=== PATIENT | female | born 1975 | race Caucasian/White ===

== ENCOUNTER 2018-01-01 08:05 | Emergency (ER) | payer BC, OTHER ==
[2018-01-01] MEDS: IPRATROPIUM (NEB) 0.5 MG/2.5 ML AMP HHN (08:29)
[2018-01-01] MEDS: ALBUTEROL 0.083% (NEB) 2.5 MG/3 ML AMP HHN (08:30)
[2018-01-01] MEDS: METHYLPRED. NA SUCC 250 MG in DEXTROSE 5% 50 ML IV (08:41)
== END 2018-01-01 09:15 | disposition home or self-care (01) ==
LOC: FTE 08:05
DX: J45.901 Unspecified asthma with (acute) exacerbation (principal)
CPT/HCPCS: 94664; 99284-25

== ENCOUNTER 2018-05-04 15:09 | Emergency (ER) | payer OTHER, BC ==
[2018-05-04] MEDS: DEXAMETHASONE 10 MG/ML 1 ML INJ IM (15:40)
[2018-05-04] MEDS: ALBUTEROL 0.083% (NEB) 2.5 MG/3 ML AMP NEB (15:57)
[2018-05-04] MEDS: IPRATROPIUM (NEB) 0.5 MG/2.5 ML AMP NEB (15:57)
== END 2018-05-04 16:42 | disposition home or self-care (01) ==
LOC: FTE 15:09
DX: J45.901 Unspecified asthma with (acute) exacerbation (principal); H61.21 Impacted cerumen, right ear; H92.01 Otalgia, right ear; Z76.0 Encounter for issue of repeat prescription; Z87.891 Personal history of nicotine dependence
CPT/HCPCS: 94664; 96372; 99284-25